=== PATIENT | male | born 1995 | race Caucasian/White ===

== ENCOUNTER 2020-03-06 10:06 | Emergency (ER) | payer BC, SELFPAY ==
[2020-03-06] MEDS: BELLADONNA ALK/PHENOB ELIX 10 ML, MAG HYDROX/ALUMINUM HYD/SIMETH 30 ML, LIDOCAINE HCL 2... PO (10:42)
[2020-03-06] MEDS: SODIUM CHLORIDE 0.9% IV 1,000 ML 999 ML IV CONT (10:43)
[2020-03-06 10:44] VITALS: BP 126/69; PULSE 75; RESP 14; TEMP 37; O2SAT 100
[2020-03-06 10:46] LABS: Basophils Percent Auto 0.4 % (0.2-1.2); Eosinophils Absolute Auto 0.1 K/mm3 (0-0.3); Eosinophils Percent Auto 0.8 % (0-4.4); Hematocrit 42.4 % (42.0-52.0); Hemoglobin 15.2 g/dL (14.0-18.0); Immature Granulocyte Absolute 0.01 K/mm3 (0.00-0.031); Immature Granulocyte Percent A 0.1 % (0-0.5); Lymphocytes Absolute Auto 1.98 K/mm3 (0.9-3.2); Lymphocytes Percent Auto 26.7 % (18.3-44.2); Mean Corpuscular HGB Conc 35.8 g/dl (32-36); Mean Corpuscular Hemoglobin 30.2 pg (26-34); Mean Corpuscular Volume 84.1 fl (80-100); Mean Platelet Volume 9.5 fl (7.4-10.4); Monocytes Absolute Auto 0.8 K/mm3 (0.1-0.6); Monocytes Percent Auto 11.1 % (2.6-8.5); Neutrophils Absolute Auto 4.5 K/mm3 (1.3-6.7); Neutrophils Percent Auto 60.9 % (45.5-73.1); Platelet Count Result 206 k/mm3 (150-375); Red Blood Count 5.04 M/mm3 (4.6-6.20); Red Cell Distribution Width 11.9 % (11.5-14.5); White Blood Count 7.4 K/mm3 (4.5-10.0)
[2020-03-06 10:57] LABS: Alanine Aminotransferase 13 U/L (4-50); Albumin Level 4.6 g/dL (3.5-5.1); Alkaline Phosphatase 58 U/L (38-126); Anion Gap 9 mmol/L (8-16); Aspartate Amino Transferase 19 U/L (17-59); Blood Urea Nitrogen 20 mg/dL (9-20); Calcium 9.3 mg/dL (8.4-10.2); Carbon Dioxide 27 mmol/L (22-30); Chloride 105 mmol/L (98-107); Estimated CRCL calculation 89 ml/min; Estimated Glomerular Filt Rate > 60; Glucose 94 mg/dL (75-110); Lipase 108 U/L (23-300); Sodium 141 mmol/L (137-145)
[2020-03-06 11:12] VITALS: BP 131/77; PULSE 61; RESP 14; O2SAT 100
--- NOTE | 2020-03-06 11:21 | ED.ABDPAIN ---
HPI - Abdominal Pain General Chief Complaint: Abdominal Pain Stated Complaint: stomach issues, heart burn Time Seen by Provider: 03/06/20 10:15 Source: patient Mode of arrival: ambulatory Limitations: no limitations History of Present Illness HPI narrative: Patient presents with chief complaint of epigastric and sternal discomfort accompanied by refluxing that has been occurring with bloated sensation and belching for 3+ months. Patient states that he has been taking omeprazole he believes 20 mg. Daily as well as using Pepto-Bismol. Patient states last night at approximately 6 PM after eating a [employer] sandwich with pepperoni, other meats and Chipotle sauce he began having epigastric discomfort. Patient has not taking any omeprazole or Pepto-Bismol since last night. He states that she continues to have a feeling of bloatedness and pain he came to the emergency department. He states he is trying to get into a GI specialist for further investigation into his symptoms. He denies fever, chills, left-sided chest pain, shortness of breath, vomiting, diarrhea, blood in stools, lower abdominal or right upper quadrant pain. Related Data Allergies Allergy/AdvReac Type Severity Reaction Status Date / Time No Known Allergies Allergy Verified 03/06/20 10:49 Review of Systems Review of Systems: Narrative: CONSTITUTIONAL: Denies fever, chills, or sweats. EYES: Denies visual changes, redness, or discharge. ENT: Denies rhinorrhea, congestion, sore throat, or otalgia. CARDIOVASCULAR: Denies chest pain, palpitations, or edema. RESPIRATORY: Denies cough or dyspnea. GASTROINTESTINAL: Reports epigastric discomfort with belching, bloatedness and reflux denies vomiting, or diarrhea. GENITOURINARY: Denies dysuria or hematuria. SKIN: Denies rash or itching. MUSCULOSKELETAL: Denies back pain, joint pain, or myalgia. NEUROLOGIC: Denies headache, numbness, dizziness, or weakness. PSYCHIATRIC: Denies anxiety or depression. Exam Narrative: Exam Narrative: GENERAL: Well-appearing, well-nourished, and in no acute distress. HEAD: Normocephalic, atraumatic. EYES: PERRLA and EOMI. ENT: Bilateral TMs pearly cook nonbulging NECK: Supple. No adenopathy or masses. ROM intact CHEST: Clear to auscultation. No respiratory distress. No wheezes rales or rhonchi HEART: Regular rate and rhythm. ABDOMEN: Soft, nontender, nondistended, normal active bowel sounds. EXTREMITIES: Normal range of motion. No edema. SKIN: Warm, dry, no rash. NEURO: No focal deficits. Alert and oriented x3. PSYCH: Normal mood and affect. Course Vital Signs Vital signs: Vital Signs Temperature 98.6 F 03/06/20 10:44 Pulse Rate 75 03/06/20 10:44 Respiratory Rate 14 03/06/20 10:44 Blood Pressure 126/69 03/06/20 10:44 Pulse Oximetry 100 03/06/20 10:44 Temperature 98.6 F 03/06/20 10:44 Pulse Rate 61 03/06/20 11:12 Respiratory Rate 14 03/06/20 11:12 Blood Pressure 131/77 03/06/20 11:12 Pulse Oximetry 100 03/06/20 11:12 MDM - Abdominal Pain MDM Narrative Medical decision making narrative: Patient's vital signs are normal. Patient's lab work is insignificant for any signs of pancreatic or gallbladder obstruction. He does not have chest pain or shortness of breath. He has received fluids, Protonix and GI cocktail. Patient will prescribe Protonix 40 mg daily to take and told to avoid spicy, greasy or irritating foods. Patient will be referred to GI specialist for further evaluation of the symptoms. Patient to return to emergency department if he has any emergent symptoms. Differential Diagnosis Differential diagnosis: Likely abdominal pain, acute appendicitis, calculus of kidney, constipation, diverticulitis, endometriosis, gastroenteritis, pancreatitis and small bowel obstruction Lab Data Result diagrams: 03/06/20 10:27 03/06/20 10:27 Labs: Lab Results 03/06/20 03/06/20 Range/Units 10:27 10:27 WBC 7.4 (4.5-10.0) K/mm3
[2020-03-06] MEDS: PANTOPRAZOLE 40 MG TABLET PO (11:22)
== END 2020-03-06 12:16 | disposition home or self-care (01) ==
PROVIDERS: Physician Assistant; Emergency Provider Emergency Medicine
DX: K21.9 Gastro-esophageal reflux disease without esophagitis (principal)
CPT/HCPCS: 36415; 80053; 83690; 85025; 96360; 99283; A9270; J7030

== ENCOUNTER 2020-04-06 12:58 | Observation (INO) | payer BC, SELFPAY ==
[2020-04-06] VITALS (22 sets, daily range): BP systolic 93–121; BP diastolic 52–82; PULSE 75–110; RESP 15–18; TEMP 37.1–37.3; O2SAT 98–100; BMI 18.2; BMI 18.1
--- NOTE | ~2020-04-06 | XR_ITS ---
EXAMINATION: XR chest 2V EXAM DATE: 04/06/2020 18:00 INDICATION: Abdominal pain, N/V, chest pain, rash, epigastric pain. TECHNIQUE: Frontal and lateral projections of the chest obtained and reviewed. There is no prior maggie dy for comparison. FINDINGS: The lungs are clear. There are no pleural effusions. The cardiomediastinal silhouette is within normal limits. There is no pneumothorax suspected. Mild upper thoracic levoscoliosis. IMPRESSION: No acute cardiopulmonary findings. Reviewed, dictated and finalized at location G. [employer]
--- NOTE | ~2020-04-06 | CT_ITS ---
EXAMINATION: CT abdomen pelvis w con DATE: 04/06/2020 15:23 INDICATION: Vomiting and abdominal pain. TECHNIQUE: Computed tomography (CT) of the abdomen and pelvis was performed with 100 mL Omnipaque-350 intravenous contrast. Automated exposure control and iterative reconstruction technique were employe d. The dose-length product was 226.37 mGy-cm. COMPARISON: None FINDINGS: Lung bases are clear. Visualized inferior heart is normal. No pericardial or pleural effusion. Liver, gallbladder, spleen, pancreas, bilateral adrenal glands and right kidney are normal. 2.9 cm cyst at the lower pole of the left kidney. Normal appendix. No bowel obstruction. There is some haustral thic kening at the ascending colon which could be seen with a focal colitis. No pneumatosis. Small amount of likely reactive free fluid in the deep pelvis. No abscess or free intraperitoneal gas. Bladder is normal. No pathologically enlarged abdominal or pelvic lymphadenopathy. Mild lumbar levoscoliosis. IMPRESSION: 1. Haustral thickening in the ascending colon consistent with focal colitis which could be infectious , inflammatory or less likely ischemic in etiology. 2. Small amount of likely reactive free fluid in the pelvis. No abscess. Reviewed, dictated and finalized at location A. [employer] IMPRESSION: 1. Haustral thickening in the ascending colon consistent with focal colitis whi ch could be infectious, inflammatory or less likely ischemic in etiology. 2. Small amount of likely reactive free fluid in the pelvis. No abscess.
[2020-04-06] MEDS: SODIUM CHLORIDE 0.9% IV 1,000 ML 999 ML IV CONT (14:01)
[2020-04-06] MEDS: ONDANSETRON INJ 4 MG/2 ML VIAL IV PUSH ×2 (14:01→23:34)
[2020-04-06] MEDS: diphenhydrAMINE HCl INJ 50 MG/ML VIAL 25 MG IV PUSH ×2 (14:01→23:33)
--- NOTE | 2020-04-06 14:05 | PC.NURSE ---
VAISHALI Mcqueen at bedside for update.
[2020-04-06 14:06] LABS: Hematocrit 53.9 % (42.0-52.0); Hemoglobin 18.7 g/dL (14.0-18.0); Mean Corpuscular HGB Conc 34.7 g/dl (32-36); Mean Corpuscular Hemoglobin 30.1 pg (26-34); Mean Corpuscular Volume 86.7 fl (80-100); Mean Platelet Volume 9.9 fl (7.4-10.4); Platelet Count Result 280 k/mm3 (150-375); Red Blood Count 6.22 M/mm3 (4.6-6.20); Red Cell Distribution Width 11.9 % (11.5-14.5)
--- NOTE | 2020-04-06 14:12 | ED.ALLEREA ---
HPI - Allergic Reaction General Chief complaint: Allergic Reaction Stated complaint: vomiting, abd pain Time Seen by Provider: 04/06/20 13:02 Source: patient Mode of arrival: ambulatory Limitations: no limitations History of Present Illness HPI narrative: Patient is a 24 year old male who presents with rash and nausea with vomiting x 1 day. Patient reports eating [employer] last pm and awaking with nausea and vomiting. Patient reports 6 episodes of vomiting last pm. He also reports generalized pruritic rash that appeared with other symptoms and mild abdominal pain. He denies taking [id number] medications for relief prior to arrival. He denies any significant medical history, however, has been recently treated with new diagnosis of GERD. MD complaint: allergic reaction and other (Nausea/vomiting) Related Data Home Medications Medication Instructions Recorded Confirmed omeprazole 20 mg PO DAILY 04/06/20 Allergies Allergy/AdvReac Type Severity Reaction Status Date / Time No Known Allergies Allergy Verified 03/23/20 13:13 Review of Systems Review of Systems: Narrative: CONSTITUTIONAL: Denies fever, chills, or sweats. EYES: Denies visual changes, redness, or discharge. ENT: Denies rhinorrhea, congestion, sore throat, or otalgia. CARDIOVASCULAR: Denies chest pain, palpitations, or edema. RESPIRATORY: Denies cough or dyspnea. GASTROINTESTINAL: Nausea and vomiting x1 day, mild abdominal cramping GENITOURINARY: Denies dysuria or hematuria. SKIN: Generalized pruritic rash MUSCULOSKELETAL: Denies back pain, joint pain, or myalgia. NEUROLOGIC: Denies headache, numbness, dizziness, or weakness. PSYCHIATRIC: Denies anxiety or depression. [facility] Past Medical History Medical History Anxiety Heartburn Surgical History Surgical History H/O adenoidectomy Hx of tonsillectomy [place] teeth extracted Social History Social History Gender identity (if verbalized by the patient): Male Comments At the time of signature, I have reviewed and agree with nursing past medical, surgical, social, and family history unless otherwise noted. Please see nursing chart for further information. There is no relevant family history pertinent to the presenting complaint. Exam Narrative: Exam Narrative: GENERAL: Well-appearing, well-nourished, and in no acute distress. HEAD: Normocephalic, atraumatic. EYES: EOMI. No redness or drainage. Conjunctiva are normal. ENT: Mucous membranes pink and moist. CHEST: No respiratory distress. HEART: Regular rate and rhythm. No murmur appreciated. Normal peripheral pulses. GI: Soft, nontender without rebound, or guarding. No distention. Bowel sounds normal in all quadrants. MUSCULOSKELETAL: No bony tenderness. EXTREMITIES: Normal range of motion. No edema. SKIN: Generalized urticaria and erythematous rash to torso and bilateral lower extremities. NEURO: No focal deficits. Alert and oriented x3. Gait steady. PSYCH: Normal affect. No signs of depression or anxiety. Course Vital Signs Vital signs: Vital Signs Pulse Rate 110 H 04/06/20 13:03 Respiratory Rate 15 04/06/20 13:03 Blood Pressure 119/82 04/06/20 13:03 Pulse Oximetry 100 04/06/20 13:03 Pulse Rate 75 04/06/20 16:00 Respiratory Rate 16 04/06/20 16:00 Blood Pressure 111/69 04/06/20 16:00 Pulse Oximetry 98 04/06/20 16:00 Reviewed MDM - Allergic Reaction MDM Narrative Medical decision making narrative: Patient's white count is elevated, CT shows possible infectious colitis. Patient to be admitted for observation. Spoke with MAYCOL Braga, who accepts patient for Dr. Garcia. Patient is aware and agrees with plan of care. Differential Diagnosis Differential diagnosis: Likely anaphylaxis, viral enanthem and urticaria Lab Data Result diag
[2020-04-06 14:22] LABS: Atypical Lymphocytes Present; Lymphocytes Absolute Manual 1.56 K/mm3 (1.1-4.5); Monocytes Absolute Manual 1.56 K/mm3 (0.1-0.90); Monocytes Percent Manual 6 % (3-9); Neutrophils Percent Manual 88 % (46-73); Platelet Estimate Adequate (Adequate); Tear Drop Cells 1+ (NORMAL); Total Cells Counted 100
[2020-04-06] MEDS: BELLADONNA ALK/PHENOB ELIX 10 ML, MAG HYDROX/ALUMINUM HYD/SIMETH 30 ML, LIDOCAINE HCL 2... PO (14:22)
[2020-04-06 15:07] LABS: Anion Gap 6 mmol/L (8-16); Blood Urea Nitrogen 22 mg/dL (9-20); Carbon Dioxide 25 mmol/L (22-30); Chloride 106 mmol/L (98-107); Estimated CRCL calculation 94 ml/min; Estimated Glomerular Filt Rate > 60; Glucose 131 mg/dL (75-110); Potassium 5.4 mmol/L (3.4-5.0); Sodium 137 mmol/L (137-145)
--- NOTE | 2020-04-06 15:18 | PC.NURSE ---
pt to ct at this time.
--- NOTE | 2020-04-06 17:00 | PC.NURSE ---
PT UNABLE TO PROVIDE URINE, REFUSING CATH.
[2020-04-06 17:16] LABS: Lipase 29 U/L (23-300)
[2020-04-06 18:06] LABS: Lactic Acid Reflex 1.6 mmol/L (0.7-2.1)
[2020-04-06] MEDS: SODIUM CHLORIDE 0.9% IV 1,000 ML 125 ML IV CONT (18:53)
--- NOTE | 2020-04-06 19:02 | ADMGEN ---
This patient, Christiano Jonas, was admitted to Medical Room 251-01. Patient/family oriented to hospital policies and general routines including ID bracelet, bed and alarms, visiting hours, pain management, procedures, bathroom and other care routines, personal items, smoking policy, room service/diet, and visiting hours. Information on how to activate the Rapid Response Team has been discussed. Patient/Family are encouraged to report perceived risks to care and to ask questions if they do not understand what they are told or what they should do.
--- NOTE | 2020-04-06 22:13 | PM.IMHP ---
H&P: HPI History of Present Illness Date/Time: 04/06/20 22:13 Chief Complaint: Abdominal pain Narrative: Christiano Jonas is a 24 year old male who has a history of gastroesophageal reflux disease. He occasionally takes omeprazole. The patient stated that he went to [employer] and ate a sandwich last night began to become ill. Long and then took some Pepto-Bismol and vomit 1 time today. He also developed a rash last night. He is telling me that he has a mild sore throat today but he thinks is from vomiting and having a dry mouth. He said he had a low-grade fever last last night. Patient has not tried any new foods or any new medicine. Patient thought that maybe he had allergic reaction to something that he ate last night. His white count was noted to be 26.0. His H&H is 18.7 in 53.9. The patient appears to be dehydrated. CT of the abdomen was read as haustral thickening in the ascending colon consistent with focal colitis which could be infectious, inflammatory or least likely ischemic. Small amount of likely reactive fluid in the pelvis no abscess. Patient was started on Zosyn for possible bacterial infection.Patient was given a GI cocktail in the emergency room, IV Benadryl and Zosyn. The patient's rash started to clear. Though the patient continues to have a sandpaper rash to his abdomen. And his hands and feet. No cultures had been obtained prior to antibiotics being started. The patient is being admitted as observation on the date of service of 04/06/2020 Review of Systems Constitutional: Constitutional: Reports as per HPI and Reports no additional constitutional complaints Eyes: Eyes: Reports as per HPI and Reports no additional eye complaints ENT: Reports system reviewed and no additional complaints, except as documented and Reports Normal hearing present Cardiovascular: Cardiovascular: Reports no additional cardiovascular complaints Respiratory: Respiratory: Reports as per HPI and Reports no additional respiratory complaints Gastrointestinal: Gastrointestinal: Reports as per HPI and Reports no additional gastrointestinal complaints Musculoskeletal: Musculoskeletal: Reports no additional musculoskeletal complaints Integumentary/Breasts: Skin/Breast: Reports system reviewed and no additional complaints, except as docu Neurologic: Reports system reviewed and no additional complaints, except as documented and Reports Normal hearing present Psychiatric: Psychiatric: Reports no additional psychiatric complaints and Reports as per HPI Hematologic/Lymphatic: Hematologic/Lymphatic: Reports no additional hematologic/lymphatic complaints Allergic/Immunologic: Allergic/Immunologic: Reports no additional allergic/immunologic complaints [facility] Past Medical History Medical History Anxiety Heartburn Surgical History Surgical History H/O adenoidectomy Hx of tonsillectomy [place] teeth extracted Family History Family History (Updated 04/06/20 @ 22:26 by Maria Luz Bautista NP) Father Pre-diabetes Social History Social History (Updated 04/06/20 @ 22:30 by Maria Luz Bautista NP) Social History: The patient lives with some friends and goes to college. He is a full code and desires to have his dad as poa. He has no children and is getting a darrel. He never smokes and rarely drinks. Does not use any marijuana or illicit drugs. He does not have a significant other a went on to tell me that he still a virgin Smoking status: Never smoker Alcohol intake: current Drinks per week: 1 Substance use: never Substance use type: does not use Gender identity (if verbalized by the patient): Male Spiritual care concerns: No Meds Home Medications and Allergies Home Medications Medication Instructions Recorded Confirmed Type omeprazole 20 mg PO DAILY 04/06/20 04/06/20 History Allergies Allergy/AdvReac
[2020-04-07] MEDS: SODIUM CHLORIDE 0.9% IV 1,000 ML 125 ML IV CONT ×2 (03:01→13:22)
[2020-04-07 05:09] VITALS: BP 96/56; PULSE 97; RESP 18; TEMP 37.1; O2SAT 95
[2020-04-07 05:42] LABS: Basophils Percent Auto 0.2 % (0.2-1.2); Eosinophils Percent Auto 0.2 % (0-4.4); Hematocrit 41.7 % (42.0-52.0); Hemoglobin 14.4 g/dL (14.0-18.0); Immature Granulocyte Absolute 0.05 K/mm3 (0.00-0.031); Immature Granulocyte Percent A 0.4 % (0-0.5); Lymphocytes Absolute Auto 2.55 K/mm3 (0.9-3.2); Lymphocytes Percent Auto 19.2 % (18.3-44.2); Mean Corpuscular HGB Conc 34.5 g/dl (32-36); Mean Corpuscular Hemoglobin 30.2 pg (26-34); Mean Corpuscular Volume 87.4 fl (80-100); Mean Platelet Volume 10.3 fl (7.4-10.4); Monocytes Absolute Auto 1.4 K/mm3 (0.1-0.6); Monocytes Percent Auto 10.8 % (2.6-8.5); Neutrophils Absolute Auto 9.2 K/mm3 (1.3-6.7); Neutrophils Percent Auto 69.2 % (45.5-73.1); Platelet Count Result 204 k/mm3 (150-375); Red Blood Count 4.77 M/mm3 (4.6-6.20); Red Cell Distribution Width 11.9 % (11.5-14.5); White Blood Count 13.3 K/mm3 (4.5-10.0)
[2020-04-07 05:50] LABS: Alanine Aminotransferase 34 U/L (4-50); Albumin Level 3.4 g/dL (3.5-5.1); Alkaline Phosphatase 38 U/L (38-126); Anion Gap 1 mmol/L (8-16); Aspartate Amino Transferase 68 U/L (17-59); Bilirubin,Total 1.7 mg/dL (0.2-1.3); Blood Urea Nitrogen 21 mg/dL (9-20); CRP 2.7 mg/dL (<1.0); Calcium 8.4 mg/dL (8.4-10.2); Carbon Dioxide 30 mmol/L (22-30); Chloride 106 mmol/L (98-107); Estimated CRCL calculation 76 ml/min; Estimated Glomerular Filt Rate > 60; Glucose 103 mg/dL (75-110); Magnesium 1.7 mg/dL (1.6-2.3); Potassium 3.8 mmol/L (3.4-5.0); Sodium 137 mmol/L (137-145)
[2020-04-07 05:56] LABS: Lactic Acid Reflex 0.9 mmol/L (0.7-2.1)
[2020-04-07] MEDS: FAMOTIDINE 20 MG/2 ML VIAL IV PUSH (09:08)
[2020-04-07] MEDS: ENOXAPARIN 40 MG/0.4 ML SYRINGE SUB-Q (09:09)
[2020-04-07 09:11] LABS: Add Urine Microscopic? YES; Appearance Urine Clear (Clear); Bilirubin Urine Negative (Negative); Blood Urine Negative (Negative); Color Urine Yellow (Yellow); Glucose Urine UA Negative (Negative); Ketones Urine Trace mg/dL (Negative); Leukocyte Esterase Ur Negative LEU/UL (Negative); Mucus Urine Rare /lpf; Nitrate Urine Negative (Negative); Protein Urine 1+ mg/dL (Negative); RBC Urine 0-2 /hpf (0-2); Urobilinogen Urine Negative mg/dL (<2.0); WBC Urine 0-3 /hpf
[2020-04-07 09:12] LABS: Specific Grav Ur 1.055 (1.001-1.035)
[2020-04-07 11:16] VITALS: BMI 18.1
[2020-04-07 14:00] VITALS: BP 117/53; PULSE 91; RESP 20; TEMP 37.1; O2SAT 100
--- NOTE | 2020-04-07 14:48 | PC.NURSE ---
Patient ate lunch and denies any abdominal pain, nausea, vomiting or diarrhea. Patient now states he has left sided chest pressure and he rates it 2/10. Per patient, pain is non-radiating. VS: T 98.7, HR 91, RR 20, pulse ox 100% on room air, B/P 117/53. No distress noted. Patient sitting in bed talking on phone. Denies other pain or discomfort. Called [employer] PA and left voice message with all above information.
--- NOTE | 2020-04-07 15:41 | PM.DS ---
DS: Admitting Diagnosis Admitting Diagnosis Admitting Diagnosis: Vomiting, rash DS: Discharge Diagnosis Discharge Diagnosis (1) Streptococcal pharyngitis: Code(s): J02.0 - Streptococcal pharyngitis Status: Acute Assessment and Plan: Group A strep antigen positive. He had sore throat and low grade fever, as well as sandpaper rash on abdomen and thighs. He was able to swallow and manage oral secretions. Fever and rash resolved. Culture pending. He was started on augmentin and will complete 10 days. (2) Colitis: Code(s): K52.9 - Noninfective gastroenteritis and colitis, unspecified Status: Acute Assessment and Plan: CT a/p showed haustral thickening of ascening colon consistent with focal colitis. Etiology unclear. He did not have abdominal pain or diarrhea. He had emesis x1. Infectious etiology considered, however he was not having diarrhea and no stool cultures able to be collected. Inflammatory less likely as he denies weight loss, bloody stools. Ischemic unlikely and lactic wnl. I discussed case with Dr. Whittington (lumber checker) and he will follow up as an outpatient. He was started on augmentin to cover strep as well as possible infectious abdominal etiology. Probiotic initiated. (3) Rash: Code(s): R21 - Rash and other nonspecific skin eruption Status: Acute Assessment and Plan: Developed a sandpaper rash on his abdomen and thighs, felt to be secondary to strep pharyngitis. Resolved with IV Benadryl. Treatment for strep as above. (4) Leukocytosis: Code(s): D72.829 - Elevated white blood cell count, unspecified Status: Acute Assessment and Plan: He had marked leukocytosis on presentation which is likely explained by strep pharyngitis. Infectious etiology for colitis considered as well. Leukocytosis improved significantly following IV antibiotics. 13.3 at time of discharge. Repeat CBC in 1 week to ensure resolution. (5) History of heartburn: Code(s): Z87.898 - Personal history of other specified conditions Status: Acute Assessment and Plan: He has been evaluated by GI in the past. He has intermittent symptoms. Continue omeprazole. Discussed anti-reflux measures. DS: Summary Hospital Course Reason for hospitalization: Strep pharyngitis Hospital Course: Date of admission: 04/06/20 Date of discharge: 04/07/20 Christiano Jonas is a 24-year-old male with history of GERD who presented to the emergency department on 04/06/2020 with complaints of emesis x1 and development of rash. Upon presentation to the ED, his vital signs were stable, WBC elevated at 26.0, H&H slightly elevated felt to be hemoconcentrated, potassium mildly elevated at 5.4, and additional electrolytes stable. Potassium improved following IV fluid hydration. He was admitted to the hospitalist service for further evaluation and management. Please see above for further details. He was treated for strep pharyngitis and suspected infectious colitis with Augmentin x10 days. He will follow up with GI as an outpatient. His rash resolved. He began feeling much better and was able to tolerate a bland diet. Given his overall improvement, he was determined to no longer require inpatient care and felt to be stable for discharge. We discussed worrisome signs and symptoms for which to return and he was educated on medications. He was discharged in hemodynamically stable condition on 04/07/20. Status at Discharge Functional status at discharge: independent ambulation Overall status at discharge: patient is back to baseline Time Spent with Patient Time attestation: Total time spent providing and/or coordinating discharge services: 45 minutes Time spent: Greater than 30 minutes Exam Narrative: Exam Narrative: Mr. Jonas is a thin, well-appearing 24-year-old male who is lying semi recumbent in bed. He appears comfortable and is in NARD. HR 97, BP 96/56, R 18, T 98.8?, 95% miguel angel
--- NOTE | 2020-04-07 15:44 | PC.NURSE ---
Patient states chest pressure has completely resolved. States he has recently been diagnosed with GERD.
--- NOTE | 2020-04-07 15:45 | PC.NURSE ---
Spoke with Celestina SAHU via phone to make sure she received message about earlier chest pressure. She states she spoke with patient and his pain is resolved. Patient to be discharged.
== END 2020-04-07 16:20 | disposition home or self-care (01) ==
LOC: ANHED 17:04 → ANH2MED 17:16
PROVIDERS: Nurse Practitioner; Admitting Provider Family Medicine; Emergency Provider Nurse Practitioner; Referring Provider Family Medicine; Visit Provider Internal Medicine
DX: J02.0 Streptococcal pharyngitis (principal); K52.9 Noninfective gastroenteritis and colitis, unspecified; R21 Rash and other nonspecific skin eruption; D72.829 Elevated white blood cell count, unspecified; R11.2 Nausea with vomiting, unspecified; K21.9 Gastro-esophageal reflux disease without esophagitis
CPT/HCPCS: 36415; 71046; 74177; 80048; 80053; 81001; 83605; 83690; 83735; 84443; 85025; 86140; 87040; 87081; 87880; 96361; 96365; 96372; 96374; 96375; 96376; 99285; A9270; G0378; J1200; J1650; J2405; J2543; J7030; Q9967